=== PATIENT | male | born 2000 | race Asian ===

== ENCOUNTER 2022-09-15 12:24 | Inpatient (IN) | payer MEDICAID, OTHER ==
[~2022-09-15] VITALS: Ht 182.9 cm; Wt 107.0 kg
[2022-09-15] MEDS ORDERED: HALOPERIDOL 5 MG TABLET PO PRN (13:45)
[2022-09-15 13:55] LABS: BASOPHILS % (AUTO) 0.2 % (0.0-2.0); EOSINOPHILS % (AUTO) 0.3 % (1.0-6.0); HEMATOCRIT 45.9 % (41-53); HEMOGLOBIN 15.2 g/dL (13.5-17.5); LYMPHOCYTES # (AUTO) 1.9 K/uL (1.0-4.8); LYMPHOCYTES % (AUTO) 9.9 % (22.0-44.0); MEAN CORPUSCULAR HEMOGLOBIN 30.1 pg (26.0-34.0); MEAN CORPUSCULAR HGB CONC 33.2 G/dL (31.0-37.0); MEAN CORPUSCULAR VOLUME 91 fL (80-100); MONOCYTES # (AUTO) 0.9 K/uL (0.1-1.0); MONOCYTES % (AUTO) 4.7 % (2.0-9.0); NEUTROPHILS # (AUTO) 16.7 K/uL (1.8-7.7); NEUTROPHILS % (AUTO) 84.9 % (40.0-70.0); PLATELET COUNT (AUTO) 273 K/uL (150-450); RED BLOOD CELL COUNT(AUTO) 5.06 MIL/uL (4.50-5.90); RED CELL DISTRIBUTION WIDTH 13.7 % (11.5-14.5)
[2022-09-15 14:08] LABS: ANION GAP 10 mmol/L (8-16); CALCIUM, TOTAL 9.1 mg/dL (8.8-10.5); CARBON DIOXIDE 28 mmol/L (22-29); CHLORIDE 103 mmol/L (98-107); CREATININE 1.03 mg/dL (0.60-1.30); GLOMERULAR FILTR. RATE CALC > 60 mL/min (>60); GLUCOSE,RANDOM 106 mg/dL (70-110); POTASSIUM 3.9 mmol/L (3.5-5.1); SODIUM SERUM 141 mmol/L (136-145)
[2022-09-15 14:13] LABS: ALANINE AMINOTRANSFERASE 20 U/L (12-78); ALKALINE PHOSPHATASE 107 U/L (46-116); ASPARTATE AMINOTRANSFERASE 14 U/L (15-37); BILIRUBIN,TOTAL 0.3 mg/dL (0.1-1.0); TOTAL PROTEIN, SERUM 8.1 g/dL (6.4-8.2)
[2022-09-15 16:34] LABS: COVID AG,FIA SOURCE NASAL SWAB
[2022-09-15 18:53] LABS: AMPHET/METH SCREEN,URINE NEGATIVE (NEGATIVE); BARBITURATE SCREEN, URINE NEGATIVE (NEGATIVE); BENZODIAZEPINES SCREEN,URINE NEGATIVE (NEGATIVE); CANNABINOID SCREEN,URINE NEGATIVE (NEGATIVE); COCAINE SCREEN,URINE NEGATIVE (NEGATIVE); METHADONE SCREEN, URINE NEGATIVE (NEGATIVE); OPIATE SCREEN,URINE NEGATIVE (NEGATIVE); PHENCYCLIDINE SCREEN,URINE NEGATIVE (NEGATIVE)
[2022-09-16] MEDS: LORazepam 2 MG TABLET PO PRN (23:41)
[2022-09-16] MEDS: ZOLPIDEM TARTRATE 10 MG TABLET PO PRN (23:41)
[2022-09-16] MEDS ORDERED: IBUPROFEN 600 MG TABLET PO ONE (23:45)
[2022-09-17 15:23] VITALS: BP 124/68; PULSE 97; RESP 21; TEMP 98; O2SAT 99
[2022-09-17] MEDS ORDERED: PETROLATUM,WHITE 28 GM JELLY TP PRN (19:00)
[2022-09-17] MEDS ORDERED: IBUPROFEN 600 MG TABLET PO PRN (19:00)
[2022-09-17] MEDS ORDERED: DOCUSATE SODIUM 100 MG CAPSULE PO PRN (19:00)
[2022-09-17] MEDS ORDERED: BACITRACIN 28 GM OINTMENT TP PRN (19:00)
[2022-09-17] MEDS ORDERED: BENZOCAINE/MENTHOL LOZENGE PO PRN (19:00)
[2022-09-17] MEDS ORDERED: ACETAMINOPHEN 325 MG TABLET PO PRN (19:00)
[2022-09-17] MEDS ORDERED: ONDANSETRON HCL 4 MG TABLET PO PRN (19:00)
[2022-09-17] MEDS ORDERED: OMEPRAZOLE 20 MG CAPSULE PO PRN (19:00)
[2022-09-17] MEDS ORDERED: ALBUTEROL SULFATE HFA 90 MCG/PUFF 8 GM INHALER IH PRN (19:00)
[2022-09-17] MEDS ORDERED: LOPERAMIDE HCL 2 MG CAPSULE PO PRN (19:00)
[2022-09-17] MEDS ORDERED: MAG HYDROX/AL HYDROX/SIMETH ES 30 ML SUSPENSION UDCUP PO PRN (19:00)
[2022-09-17] MEDS ORDERED: MAGNESIUM HYDROXIDE SUSPENSION 30 ML UDCUP PO PRN (19:00)
[2022-09-17] MEDS ORDERED: CloNIDine HCL 0.1 MG TABLET PO PRN (19:00)
[2022-09-17 20:13] VITALS: BP 124/65; PULSE 98; RESP 18; TEMP 97.8; O2SAT 97
[2022-09-18 08:24] VITALS: BP 113/60; PULSE 70; RESP 17; TEMP 97.4; O2SAT 97
[2022-09-18] MEDS: MetFORMIN HCL 500 MG TABLET PO SCH (17:23)
[2022-09-18] MEDS: CHOLECALCIFEROL (VIT D3) 400 UNITS [10 MCG] TABLET PO SCH (17:23)
[2022-09-18] MEDS: ARIPiprazole 15 MG TABLET PO SCH (18:20)
[2022-09-18 20:04] VITALS: BP 122/68; PULSE 80; RESP 18; TEMP 98; O2SAT 98
[2022-09-18 20:59] VITALS: RESP 18
[2022-09-19] MEDS: MetFORMIN HCL 500 MG TABLET PO SCH ×2 (06:41→17:03)
[2022-09-19 07:54] LABS: BASOPHILS % (AUTO) 0.3 % (0.0-2.0); EOSINOPHILS % (AUTO) 2.2 % (1.0-6.0); HEMATOCRIT 45.7 % (41-53); HEMOGLOBIN 15.1 g/dL (13.5-17.5); LYMPHOCYTES # (AUTO) 3.6 K/uL (1.0-4.8); LYMPHOCYTES % (AUTO) 41.7 % (22.0-44.0); MEAN CORPUSCULAR HGB CONC 33.1 G/dL (31.0-37.0); MEAN CORPUSCULAR VOLUME 91 fL (80-100); MONOCYTES # (AUTO) 0.6 K/uL (0.1-1.0); MONOCYTES % (AUTO) 6.8 % (2.0-9.0); NEUTROPHILS # (AUTO) 4.2 K/uL (1.8-7.7); PLATELET COUNT (AUTO) 284 K/uL (150-450); RED BLOOD CELL COUNT(AUTO) 5.05 MIL/uL (4.50-5.90); RED CELL DISTRIBUTION WIDTH 13.3 % (11.5-14.5)
[2022-09-19] MEDS: FLUoxetine HCL 20 MG CAPSULE PO SCH (08:07)
[2022-09-19] MEDS: ARIPiprazole 15 MG TABLET PO SCH (08:07)
[2022-09-19] MEDS: CHOLECALCIFEROL (VIT D3) 400 UNITS [10 MCG] TABLET PO SCH (08:08)
[2022-09-19 08:28] VITALS: BP 110/69; PULSE 93; RESP 17; TEMP 97.8; O2SAT 97
[2022-09-19 20:10] VITALS: BP 114/70; PULSE 72; RESP 18; TEMP 98; O2SAT 98
[2022-09-20] MEDS: MetFORMIN HCL 500 MG TABLET PO SCH ×2 (06:27→16:43)
[2022-09-20] MEDS: FLUoxetine HCL 20 MG CAPSULE PO SCH (08:20)
[2022-09-20] MEDS: CHOLECALCIFEROL (VIT D3) 400 UNITS [10 MCG] TABLET PO SCH (08:20)
[2022-09-20] MEDS: ARIPiprazole 15 MG TABLET PO SCH (08:20)
[2022-09-20 08:28] VITALS: BP 109/70; PULSE 75; RESP 18; TEMP 97.6; O2SAT 98
[2022-09-20 20:17] VITALS: BP 120/60; PULSE 80; RESP 19; TEMP 98.6; O2SAT 98
[2022-09-20] MEDS: ZOLPIDEM TARTRATE 10 MG TABLET PO PRN (23:24)
[2022-09-20] MEDS: LORazepam 2 MG TABLET PO PRN (23:24)
[2022-09-21] MEDS: MetFORMIN HCL 500 MG TABLET PO SCH (06:54)
[2022-09-21] MEDS: FLUoxetine HCL 20 MG CAPSULE PO SCH (08:06)
[2022-09-21] MEDS: CHOLECALCIFEROL (VIT D3) 400 UNITS [10 MCG] TABLET PO SCH (08:06)
[2022-09-21] MEDS: ARIPiprazole 15 MG TABLET PO SCH (08:08)
[2022-09-21 08:52] VITALS: PULSE 84; RESP 16; TEMP 97.3; O2SAT 97
[2022-09-21] MEDS ORDERED: FLUO20CA36 PO (12:46)
[2022-09-21] MEDS ORDERED: ARIP15TA27 PO (12:46)
[2022-09-21] MEDS ORDERED: METF-1211 PO (12:59)
== END 2022-09-21 15:07 | disposition home or self-care (01) | DRG 751 ==
LOC: EMS 12:38 → B3A 09-17 11:57
PROVIDERS: ADMIT Psychiatry & Neurology Psychiatry; ATTEND Psychiatry & Neurology Psychiatry
PROC: 0HBRXZZ Excision of Toe Nail, External Approach (ICD-10-PCS; principal; 2022-09-17)
DX: F29 Unspecified psychosis not due to a substance or known physiological condition (principal); R45.851 Suicidal ideations; S91.101A Unspecified open wound of right great toe without damage to nail, initial encounter; F84.0 Autistic disorder; F32.A Depression, unspecified; Z20.822 Contact with and (suspected) exposure to COVID-19; F41.9 Anxiety disorder, unspecified; G47.00 Insomnia, unspecified; L84 Corns and callosities; X58.XXXA Exposure to other specified factors, initial encounter; Y93.89 Activity, other specified; Y92.89 Other specified places as the place of occurrence of the external cause; Y99.8 Other external cause status
CPT/HCPCS: 80053; 80307; 85025; 97597; 99285; G0480